=== PATIENT | female | born 2000 | race African-American/Black ===

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

== ENCOUNTER 2020-01-11 01:24 | Emergency (ER) | payer MEDICAID ==
[~2020-01-11] VITALS: Ht 170.2 cm; Wt 79.4 kg
[~2020-01-11 01:24] MED LIST changes: +ZOFRAN ODT4 MG ORAL
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
[2020-01-11] MEDS ORDERED: ACETAMINOPHEN500 M3 ORAL (02:21)
--- NOTE | 2020-01-11 02:37 | Diagnostic Imaging Report ---
EXAM: XR Left Foot Complete, 3 or More Views CLINICAL HISTORY: PAIN TECHNIQUE: Frontal, lateral and oblique views of the left foot. COMPARISON: No relevant prior studies available. FINDINGS: Bones/joints: Unremarkable. No acute fracture. No dislocation. Soft tissues: Unremarkable. No radiopaque foreign body. IMPRESSION: Normal left foot x-rays.
[2020-01-11 02:40] VITALS: BP 118/60
== END 2020-01-11 02:40 | disposition home or self-care (01) ==
LOC: EMR 01:52
DX: O26.893 Other specified pregnancy related conditions, third trimester (principal); S97.81XA Crushing injury of right foot, initial encounter; W23.0XXA Caught, crushed, jammed, or pinched between moving objects, initial encounter; Z3A.36 36 weeks gestation of pregnancy
CPT/HCPCS: 73630; Z7502; 99283